=== PATIENT | male | born 1960 | race Caucasian/White ===

== ENCOUNTER → 2017-08-01 | Outpatient (CLI) | payer OTHER | LOC: BMCIMAGING 18:09 | PROVIDERS: ATTEND Emergency Medicine | DX: M79.642 Pain in left hand (principal) ==

== ENCOUNTER → 2017-08-07 | Outpatient (CLI) | payer OTHER | LOC: BMCIMAGING 13:58 | PROVIDERS: ATTEND Orthopaedic Surgery Hand Surgery | DX: M25.532 Pain in left wrist (principal) ==